=== PATIENT | female | born 1945 | race Caucasian/White ===

== ENCOUNTER → 2017-09-19 | Outpatient (CLI) | payer MEDICARE | END | disposition home or self-care (01) | LOC: RAH 13:30 | PROVIDERS: ATTEND Internal Medicine | DX: Z12.31 Encounter for screening mammogram for malignant neoplasm of breast (principal) | CPT/HCPCS: 77067 ==

== ENCOUNTER 2019-08-08 21:43 | Emergency (ER) | payer MEDICARE ==
[2019-08-08] MEDS ORDERED: ACETAMINOPHEN EXTRA STRENGTH 500 MG TABLET ONE (22:11)
[2019-08-08] MEDS ORDERED: OCTYL 2-CYANOACRYLATE 1 EACH TP ONE (22:11)
== END 2019-08-08 23:42 | disposition home or self-care (01) ==
LOC: EDH 21:43
DX: S02.40FA Zygomatic fracture, left side, initial encounter for closed fracture (principal); S60.041A Contusion of right ring finger without damage to nail, initial encounter; S61.412A Laceration without foreign body of left hand, initial encounter; I10 Essential (primary) hypertension; E78.00 Pure hypercholesterolemia, unspecified; Z98.890 Other specified postprocedural states; Z88.2 Allergy status to sulfonamides; W18.39XA Other fall on same level, initial encounter; Y93.01 Activity, walking, marching and hiking; Y92.89 Other specified places as the place of occurrence of the external cause; Y99.8 Other external cause status
CPT/HCPCS: 12001; 70450; 70486; 73130

== ENCOUNTER 2021-07-04 13:17 | Emergency (ER) | payer MEDICARE ==
[~2021-07-04] VITALS: Ht 170.2 cm; Wt 70.3 kg
[2021-07-04 13:48] LABS: BASOPHILS % (AUTO) 0.7 % (0.0-5.0); EOSINOPHILS % (AUTO) 1.2 % (0.0-8.0); HEMATOCRIT 42.8 % (36-48); LYMPHOCYTES % (AUTO) 13.1 % (21.0-51.0); MEAN CORPUSCULAR HEMOGLOBIN 29.6 pg (27.0-33.0); MEAN CORPUSCULAR HGB CONC 32.5 g/dL (32.0-36.0); MEAN CORPUSCULAR VOLUME 91.3 fL (79-99); MONOCYTES % (AUTO) 9.1 % (3.0-13.0); NEUTROPHILS % (AUTO) 75.7 % (40.0-77.0); PLATELET COUNT (AUTO) 204 K/uL (130-400); RED BLOOD CELL COUNT(AUTO) 4.69 MIL/uL (4.00-5.50); RED CELL DISTRIBUTION WIDTH 13.2 % (11.0-15.5); WHITE BLOOD COUNT (AUTO) 4.2 K/uL (4.8-10.8)
[2021-07-04 14:01] LABS: INR 0.97 (0.85-1.15); PROTHROMBIN TIME 10.6 SEC (9.6-11.6)
[2021-07-04 14:03] LABS: PARTIAL THROMBOPLASTIN TIME 26.9 SEC (26.3-35.5)
[2021-07-04 14:07] LABS: ALBUMIN 3.7 g/dL (3.5-5.0); BILIRUBIN,TOTAL 0.8 mg/dL (0.2-1.0); CREATININE 0.9 mg/dL (0.5-1.5); POTASSIUM 4.3 mmol/L (3.5-5.1); TOTAL PROTEIN, SERUM 6.5 g/dL (6.0-8.3)
[2021-07-04] MEDS ORDERED: IOHEXOL-350 75 ML VIAL IV ONE (16:38)
[2021-07-04 19:01] VITALS: BP 140/56
[2021-07-04] MEDS ORDERED: FLUT16H NASAL (19:57)
[2021-07-04] MEDS ORDERED: MECL-160 PO (19:57)
== END 2021-07-04 20:15 | disposition home or self-care (01) ==
LOC: EDH 13:17
DX: R42 Dizziness and giddiness (principal); R51.9 Headache, unspecified; F41.9 Anxiety disorder, unspecified; R26.9 Unspecified abnormalities of gait and mobility; E78.00 Pure hypercholesterolemia, unspecified; I10 Essential (primary) hypertension; Z95.5 Presence of coronary angioplasty implant and graft; Z88.2 Allergy status to sulfonamides; V29.88XA Motorcycle rider (driver) (passenger) injured in other specified transport accidents, initial encounter; Y93.89 Activity, other specified; Y92.89 Other specified places as the place of occurrence of the external cause; Y99.8 Other external cause status
CPT/HCPCS: 36415; 70450; 70496; 70498; 70551; 71045; 80053; 84484; 85025; 85610; 85730; 99285; Q9967; 93005